=== PATIENT | male | born 1960 | race Asian ===

== ENCOUNTER 2019-11-10 20:14 | Emergency (ER) | payer OTHER ==
[~2019-11-10] VITALS: Ht 188 cm; Wt 69.9 kg
[2019-11-10 21:22] VITALS: BP 148/88; TEMP 97.4
== END 2019-11-10 21:22 | disposition home or self-care (01) ==
LOC: ED 20:14
DX: B35.3 Tinea pedis (principal)
CPT/HCPCS: 99282